=== PATIENT | female | born 1950 | race Caucasian/White ===

== ENCOUNTER → 2017-06-26 | Outpatient (CLI) | payer OTHER ==
[~2017-06-26] MED LIST: ATORVASTATIN; COLESEVELAM HCL; OSELTAMIVIR PHOSPHATE 75 MG CAP ONE
--- NOTE | 2017-06-26 18:39 | Diagnostic Imaging Report ---
EXAM: VENTILATION PERFUSION LUNG SCAN INDICATION: Acute onset SOB; severe cough COMPARISON: None DISCUSSION: Xenon-133 gas 9 mCi was administered via inhalation. Dynamic images of the lungs in the posterior projection were obtained through single breath and washout phases. Distribution of tracer activity is minimally irregular throughout the lungs. Washout is mildly delayed without evidence of air trapping. Perfusion images of the lungs in multiple projections were obtained following intravenous administration of 6.6 mCi of Tc-99m MAA. Distribution of tracer is minimally irregular throughout the lungs. There are no segmental perfusion defects of any size. The contours of the lungs are well demarcated. The cardiac silhouette is unremarkable. IMPRESSION: 1. Scan findings represent a VERY LOW probability for acute pulmonary embolic disease based on the PIOPED II criteria. 2. Scan findings are compatible with diffuse parenchymal and/or obstructive lung disease. Signed by: Dr. Maria De Jesus Barrow M.D. on 06/26/2017 6:35 PM
== END ==
LOC: RAD 16:46
PROVIDERS: ATTEND Emergency Medicine
DX: R06.02 Shortness of breath (principal); R05 Cough
CPT/HCPCS: 78582; A9540; A9558